=== PATIENT | male | born 1990 | race Two or more races ===

== ENCOUNTER 2021-11-13 03:03 | Emergency (ER) | payer MEDICAID ==
[~2021-11-13] VITALS: Ht 177.8 cm; Wt 95.5 kg
[2021-11-13] MEDS ORDERED: NALO4SPR BOTHNSTRLS (03:16)
[2021-11-13 03:20] VITALS: BP 126/85
== END 2021-11-13 03:27 | disposition home or self-care (01) ==
LOC: ER 03:03
DX: T40.711A Poisoning by cannabis, accidental (unintentional), initial encounter (principal); Y92.9 Unspecified place or not applicable
CPT/HCPCS: 99283

== ENCOUNTER 2022-04-16 23:49 | Emergency (ER) | payer MEDICAID ==
[~2022-04-16] VITALS: Ht 175.3 cm; Wt 64.0 kg
[~2022-04-16 23:49] MED LIST: NALO4SPR BOTHNSTRLS
[2022-04-17] MEDS ORDERED: NALOXONE HCL 0.4 MG/ML 1ML VIAL IV PRN (00:15)
[2022-04-17 00:30] LABS: CHLORIDE 104 mEq/L (98-107)
[2022-04-17 00:31] LABS: BASOPHILS % 0.4 % (0.0-2.0); EOSINOPHILS % 0.5 % (0.0-5.0); HEMATOCRIT. 44.7 % (42.0-52.0); HEMOGLOBIN. 15.6 g/dL (14.0-18.0); LYMPHOCYTES % 21.3 % (20.0-50.0); MEAN CORPUSCULAR HEMOGLOBIN 33.5 pg (28.0-32.0); MEAN CORPUSCULAR VOLUME 96.4 fL (80.0-94.0); MEAN PLATELET VOLUME 7.3 fl (7.4-10.4); MONOCYTES % 7.2 % (2.0-8.0); NEUTROPHILS % 70.6 % (40.0-76.0); PLATELET 229 x1000/uL (130-400); RED BLOOD CELL COUNT 4.64 mill/uL (4.7-6.1); RED CELL DISTRIBUTION WIDTH 13.9 % (11.6-14.6)
[2022-04-17 00:38] LABS: *AMPHETAMINES SCREEN URINE PRESUMTIVE POSITIVE (NEGATIVE); *BARBITURATES SCREEN URINE NEGATIVE (NEGATIVE); *BENZODIAZEPINES SCREEN URINE NEGATIVE (NEGATIVE); *COCAINE SCREEN URINE NEGATIVE (NEGATIVE); CANNABINOID URINE SCREEN PRESUMTIVE POSITIVE (NEGATIVE); METHADONE URINE SCREEN NEGATIVE (NEGATIVE); OPIATES URINE SCREEN NEGATIVE (NEGATIVE); PHENCYCLIDINE URINE SCREEN NEGATIVE (NEGATIVE)
[2022-04-17 00:39] LABS: ETHANOL BLOOD < 10 mg/dL
[2022-04-17] MEDS ORDERED: NALO4SPR BOTHNSTRLS (00:47)
[2022-04-17 01:00] VITALS: BP 114/72
== END 2022-04-17 02:07 | disposition left against medical advice (07) ==
LOC: ER 04-17 00:46
DX: T40.411A Poisoning by fentanyl or fentanyl analogs, accidental (unintentional), initial encounter (principal); F11.129 Opioid abuse with intoxication, unspecified; Y92.89 Other specified places as the place of occurrence of the external cause
CPT/HCPCS: 36415; 80053; 80305; 80320; 85025; 93005; 99284; G0480

== ENCOUNTER 2022-08-01 16:08 | Emergency (ER) | payer MEDICAID ==
[~2022-08-01] VITALS: Ht 175.3 cm; Wt 65.0 kg
[2022-08-01 16:17] VITALS: BP 130/76
== END 2022-08-01 19:45 | disposition left against medical advice (07) ==
LOC: ER 16:08
DX: Z53.21 Procedure and treatment not carried out due to patient leaving prior to being seen by health care provider (principal)

== ENCOUNTER 2022-09-10 09:02 | Emergency (ER) | payer MEDICAID ==
[~2022-09-10] VITALS: Ht 175.3 cm; Wt 73.0 kg
[2022-09-10] MEDS ORDERED: AMOXICILLIN/POTASSIUM CLAVULANATE 875/125MG TAB PO ONE (09:15)
[2022-09-10] MEDS ORDERED: IBUPROFEN 600MG TABLET PO ONE (09:15)
[2022-09-10] MEDS ORDERED: TETANUS, DIPHTHERIA, PERTUSSIS VAC/PF 0.5ML (>10YR OLD) IM ONE (09:15)
[2022-09-10] MEDS ORDERED: TRAMADOL 50MG TABLET PO ONE (10:00)
[2022-09-10 10:07] VITALS: BP 107/70
[2022-09-10] MEDS ORDERED: MUPI15CR11 TP (12:34)
[2022-09-10] MEDS ORDERED: IBUP-2030 MT (12:34)
== END 2022-09-10 13:14 | disposition home or self-care (01) ==
LOC: ER 09:02
DX: S91.312A Laceration without foreign body, left foot, initial encounter (principal); V29.99XA Rider (driver) (passenger) of other motorcycle injured in unspecified traffic accident, initial encounter; Y93.89 Activity, other specified; Y92.89 Other specified places as the place of occurrence of the external cause; Y99.8 Other external cause status
CPT/HCPCS: 12004; 73630; 90471; 90715; 99284

== ENCOUNTER 2022-09-17 11:03 | Emergency (ER) | payer MEDICAID ==
[~2022-09-17] VITALS: Ht 175.3 cm; Wt 75.0 kg
[~2022-09-17 11:03] MED LIST changes: +IBUP-2030 MT; +MUPI15CR11 TP
[2022-09-17 12:03] VITALS: BP 123/80
[2022-09-17] MEDS ORDERED: BACITRACIN ZINC OINT UDPKT TOP NR (16:15)
== END 2022-09-17 18:52 | disposition home or self-care (01) ==
LOC: ER 11:03
DX: S91.312D Laceration without foreign body, left foot, subsequent encounter (principal); X58.XXXD Exposure to other specified factors, subsequent encounter
CPT/HCPCS: 99282